=== PATIENT | male | born 1985 | race Caucasian/White ===

== ENCOUNTER 2017-09-20 10:12 | Emergency (ER) | payer MEDICAID ==
[2017-09-20 10:15] VITALS: BMI 23.7
--- NOTE | 2017-09-20 11:08 | ED PDOC ---
HPI: Chest Pain Time Seen by Provider: 09/20/17 10:46 Chief Complaint (Nursing): Chest Pain History Per: Patient Additional Complaint(s): Pt. states he's had constant chest pain for 2 years. He saw his PMD Dr. 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 Pt. states since getting the MRI he has not followed up with his PMD as he has not been able to find the time. Denies, SOB, hemoptysis, RUBIO, fever, cough, trauma, fever, rash. Past Medical History Reviewed: Historical Data, Nursing Documentation, Vital Signs Vital Signs: Last Vital Signs Temp 98.1 F 09/20/17 11:22 Pulse 72 09/20/17 11:22 Resp 16 09/20/17 11:22 BP 139/74 09/20/17 11:22 Pulse Ox 99 09/20/17 11:22 - Medical History PMH: Denies: CAD, Diabetes, HTN, Hypercholesterolemia, Hyperlipidemia, Chronic Kidney Disease - Surgical History Surgical History: No Surg Hx - Family History Family History: States: No Known Family Hx Denies: DC, CAD - Allergies Allergies/Adverse Reactions: Allergies Allergy/AdvReac Type Severity Reaction Status Date / Time No Known Allergies Allergy Verified 09/20/17 10:22 DELMA Risk Score for UA/NSTEMI - DELMA Risk Score Age > 64: NO 3 or more CAD Risk Factors: NO Known CAD (Stenosis greater than 50%): NO Aspirin use in past 7 days: NO Severe Angina: NO EKG ST changes greater than 0.5mm: NO Positive Cardiac Marker: NO DELMA Score: 0 Risk %: 5% Wells Criteria for PE - Wells Criteria for Pulmonary Embolism Clinical Signs and Symptoms of DVT: No P.E is #1 Diagnosis, or Equally Likely: No Heart Rate >100: No Immobilization at least 3 days;Surgery previous 4 weeks: No Previous, objectively diagnosed PE or DVT: No Hemoptysis: No Malignancy w/treatment within 6 months, or palliative: No Total Score: 0 Review of Systems ROS Statement: Except As Marked, All Systems Reviewed And Found Negative Cardiovascular: Positive for: Chest Pain Physical Exam - Physical Exam Appears: Positive for: Well, Non-toxic, No Acute Distress Skin: Positive for: Normal Color, Warm. Negative for: Rash Eye Exam: Positive for: Normal appearance Cardiovascular/Chest: Positive for: Regular Rate, Rhythm, Chest Non Tender, Other (no palpable masses) Respiratory: Positive for: Normal Breath Sounds. Negative for: Respiratory Distress Gastrointestinal/Abdominal: Positive for: Normal Exam, Soft. Negative for: Tenderness Neurologic/Psych: Positive for: Alert, Oriented - ECG ECG: Positive for: Interpreted By Me ECG Rhythm: Positive for: Sinus Rhythm. Negative for: ST/T Changes O2 Sat by Pulse Oximetry: 98 - Progress ED Course And Treament: Advised to f/u with PMD or Dr. Ray (orthopedist) for further evaluation. Disposition - Clinical Impression Clinical Impression: Chest wall pain - Patient ED Disposition Is Patient to be Admitted: No - Disposition Referrals: [facility] [Outside] Evert Ray III, MD [Staff Provider] - Disposition Time: 11:21 Condition: STABLE Additional Instructions: FOLLOW UP WITH YOUR PRIMARY CARE DOCTOR FOR FURTHER EVALUATION RETURN TO ED IMMEDIATELY IF SYMPTOMS WORSEN Instructions: Chest Pain That Is Not Caused by the Heart (DC) Forms: [employer] ([place])
[2017-09-20 11:24] VITALS: BP 139/74; PULSE 72; RESP 16; TEMP 98.1
[2017-09-22 10:31] VITALS: O2SAT 98
--- NOTE | 2017-09-22 11:13 | CARD ---
APPROVED REPORT EKG Measurement Heart [id number] <Conclusion> Normal sinus rhythm Normal ECG
== END 2017-09-20 11:21 | disposition home or self-care (01) ==
LOC: H.ER 10:12
DX: R07.89 Other chest pain (principal)